=== PATIENT | male | born 1985 | race Caucasian/White ===

== ENCOUNTER 2017-12-16 14:40 | Day surgery (SDC) | payer OTHER ==
[2017-12-16] MEDS ORDERED: Lidocaine 1% MPF wEPI 200,000* 30 ML SDV ONE (15:38)
[2017-12-16] MEDS ORDERED: Bupivacaine 0.5% SDV PF* 10-30ML VIAL ONE (15:38)
[2017-12-16] MEDS ORDERED: Bupivacaine 0.25% SDV* 30 ML ONE (15:38)
[2017-12-16] MEDS ORDERED: Midazolam* 1 MG/ML 5 ML VIAL (5 MG) ONE (17:10)
[2017-12-16] MEDS ORDERED: fentaNYL* 50 MCG/ML 2 ML VIAL (100 MCG VIAL) ONE (17:10)
[2017-12-16] MEDS ORDERED: ceFAZolin 1 GM in Dextrose (*) 2 GM/100 ML BAG IVPB ONE (17:30)
[2017-12-16] MEDS ORDERED: Propofol* 10 MG/ML 20 ML BTL IV PUSH ONE (17:39)
[2017-12-16] MEDS ORDERED: Ondansetron INJ* 2 MG/ML VIAL IV PRN (18:23)
[2017-12-16] MEDS ORDERED: Naloxone* 0.4 MG/ML 1 ML VIAL IV PRN (18:23)
[2017-12-16 18:34] VITALS: BP 135/82
--- NOTE | 2017-12-17 22:28 | OP ---
DATE OF OPERATION: 12/16/17 - [facility] DATE OF : 81 SURGEON: Meño Flannery MD LANDSCAPE DRAFTER: ELEANOR Richardson. A physician assistant district attorney was required for the length of the procedure for assistance with positioning, instrumentation, and retraction. ANESTHESIOLOGIST: Yuko Shultz MD ANESTHESIA: Monitored anesthesia care, monitored sedation, local anesthesia. Local anesthesia consisted of 10 cc of a 1:1 ratio of Marcaine 0.5% without epinephrine and lidocaine 1% with epinephrine. This was injected locally. PRE-OP DIAGNOSES: 1. Left index finger open distal phalanx fracture with exposed bone. 2. Left index finger nail bed and plate injuries. POST-OP DIAGNOSES: 1. Left index finger open distal phalanx fracture with exposed bone. 2. Left index finger nail bed and plate injuries. OPERATIVE PROCEDURE: 1. Open treatment, distal phalanx fracture, left index finger. 2. Irrigation and debridement, skin, soft tissue, bone, left index finger. 3. Nail bed repair, left index finger. 4. Repair of superficial wound, somewhere between 2.6 cm and 7.5 cm in length, left index finger. ANTIBIOTICS: Ancef 2 g IV. IV FLUIDS: 900 cc crystalloid. COMPLICATIONS: None. SPECIMENS: None. IRRIGATION: 4000 cc. IMPLANTS: None. ESTIMATED BLOOD LOSS: Minimal. TOURNIQUET TIME: Zero minutes. INDICATIONS FOR PROCEDURE: The patient is a 32-year-old man, right hand dominant, tire repair mechanic for [employer], who presented to me in clinic at the date of this procedure with a left index finger injury sustained the prior day at work. At 1 a.m. on 12/15/17, the patient had an injury at work. A ranch was stuck in the machine. The patient turned the machine off. When he went to retrieve the ranch, the ranch pinned his left index finger between the ranch and another piece of metal. There was cut skin, bleeding, and pain. The patient went to the [facility] Emergency Department where the patient was given a dose of IV antibiotics, his tetanus was updated, and he had boost closure of his wound. The patient was told to follow up in the orthopedic surgery clinic. The patient presented and had a skin laceration repair that had been performed, near circumferentially about the tip of the left index finger at the level of the distal phalanx. However, he also had exposed bone, and nail bed dorsal to the nail plate. The patient clearly had a fracture. This was confirmed by x-rays in the clinic. No metallic fragments were present by x-ray imaging. The patient also clearly had a nail bed injury and possibly some nail plate compromise. A dressing was placed and the patient was signed up for surgery to immediately followup my clinic this day. DESCRIPTION OF PROCEDURE: In preoperative holding, the patient signed an operative consent. Operative finger was marked in preoperative holding with a skin pen. We discussed risks and potential complications of surgery including bleeding, infection of soft tissues or infection of bone, pain, stiffness, nail plate deformity in the future. The patient was taken back to the operating room and kept on stretcher. The hand table was applied. A tourniquet was applied around the left upper arm, but never inflated. A mini time-out was performed upon myself. I next wiped the skin appropriately with an alcohol swab and placed my local anesthetic. I used a total of 10 cc of a 1:1 ratio of 1% lidocaine with epinephrine and 0.5% Marcaine without epinephrine. First, I injected into the flexor tendon sheath volarly. Then, I injected about the volar and dorsal digital nerves about the radial and ulnar aspect of the base of the left index finger. I then placed a wheel just below the skin dorsally. The left hand, wrist, and forearm were prepped with Betadine. A draping was performed. The patient had been sedated with monitored anesthesia care by anesthesia. Confirmed that the digital nerve block had worked very well, as the patient did not perceive pain at the finger tip. Surgical time-out was performed. The finger did not appear to be bleeding yet. Tourniquet was available, but was never used. I used an 11-blade knife and a coal picker to cut the stitches that had been placed by emergency room staff. The instruments used to cut the stitches and this suture material themselves were taken off the field. We then opened up the wound. The laceration of the skin traveled approximately 270 degrees or more around the circumference of the left index finger tip at the level of the mid to distal phalanx. There was no gross contamination. The skin was scant, stained dark clearly by long labor in a duty environment, but no gross contamination of wound whatsoever. One noa of something dark was removed, otherwise nothing. Bone ends were inspected and picked that with an Adson, but no bone end had to be debrided back. It should be stated that prior to this irrigation and inspection of wound ends, the nail plate was removed. I did so atraumatically, removing most of it with a [place] elevator, and then using an 11-blade for the last bit of it. Without the nail plate in place, I was able to nicely examine the bone ends, deep tissues, and the deep aspect of the wound. We irrigated the wound with 3 L of normal saline. There was still no significant bleeding, so we never needed a tourniquet. I started on my wound closure. First addressed skin folds and soft tissue radial and ulnar to the nail bed. I placed simple stitches using chromic 4.0 and gut 4.0 suture. I then addressed the volar aspect of the finger tip and closed it with a horizontal mattress in several simple stitches using a chromic 4.0 suture. After I have placed a number of stitches, the finger tip felt secured. The stitches were placed with the finger tip held in a fully extended position. Nail bed appeared robust most distally. It seemed perhaps slightly thinned proximally, but there did appear to still be a healthy level of nail bed. With the tip of the finger reduced, there was no exposed bone whatsoever. I placed multiple stitches in the nail bed to close this. I used one chromic 4.0 suture simple stitch, but the remainder of my stitches were with chromic 5.0 suture. Given that chromic gut suture can dissolve relatively quickly, I decided to supplement my repair of the skin and soft tissues, but not the nail bed with some stitches with nylon 4.0 suture. I placed 3 or 4 stitches, simple, with nylon 4.0 suture. The wound was not bleeding. The finger looked appropriate, without any clear deformity. Nail bed fully covered the prior defect of the nail plate. As the nail fold proximally, was not in prior anatomic position, I did not want to reposition the nail plate in place. Therefore, I did not replace the nail plate that I had been soaking in Betadine throughout the procedure in case I wanted to replace it. I next brought a mini C-arm in to the field. I took two x-ray views, a lateral and an AP. This showed the distal phalanx fracture to be excellently reduced. We compared that to the preoperative films that showed a such terrific angular deformity. We cleaned our finger tip, nail bed, as well as the remainder of the closed finger tip with 1 L of normal saline. A dressing was applied consistent of Xeroform, followed by 2 x 2 gauze followed by a Kerlix wrap. We then applied an AlumaFoam splint and a Coban wrap. The patient was lightened of anesthesia and was brought to the PACU. DISPOSITION: The patient was discharged home. He was given prescriptions for Percocet. He was told to start Keflex the night of surgery as prescribed for 7 days. The patient will follow up with me in 5-1/2 to 6 days on Friday in clinic. At that point, we will change the patient's dressing. [id number] #: [id number] MTDD
--- NOTE | 2017-12-19 13:21 | RAD ---
INDICATION: Crush injury left second finger distal phalanx COMPARISONS: December 16, 2017 TECHNIQUE: Fluoroscopy was provided for a surgical procedure. Total fluoroscopy time is: 4 seconds. Images are submitted for review on December 19, 2017. FINDINGS: Spot images again demonstrate the comminuted fracture of the tuft of the distal phalanx of the second digit. There has been interval reduction of the angulation and displacement. IMPRESSION: FLUOROSCOPY WAS PROVIDED FOR A SURGICAL PROCEDURE CPT II Codes: 6045F
== END 2017-12-16 19:10 | disposition home or self-care (01) ==
LOC: OR 14:40
PROVIDERS: ATTEND Orthopaedic Surgery
DX: S62.631B Displaced fracture of distal phalanx of left index finger, initial encounter for open fracture (principal); X58.XXXA Exposure to other specified factors, initial encounter
CPT/HCPCS: 76000; J0690; J2001; J2250; J2704; J3010